=== PATIENT | male | born 1945 | race Caucasian/White ===

== ENCOUNTER 2025-01-02 09:09 | Day surgery (SDC) | payer OTHER ==
[2025-01-02] MEDS ORDERED: Midazolam 1 MG/ML 2 ML SDV IV ONE (09:10)
[2025-01-02] MEDS ORDERED: Dexamethasone 4 MG/ML SDV IV ONE (09:10)
[2025-01-02] MEDS ORDERED: Sodium Chloride 0.9% 10 ML Syringe IV ONE (09:10)
[2025-01-02] MEDS: Proparacaine 0.5% Ophth Soln 15 ML Bottle EYERT ONE ×2 (10:04→12:02)
[2025-01-02] MEDS: Povidone-Iodine 5% Sterile Ophth Soln 30 ML Bottle EYERT ONE ×2 (10:05→12:02)
[2025-01-02] MEDS: Moxifloxacin 0.5% Ophth Soln 3 ML Bottle EYERT ONE (10:05)
[2025-01-02] MEDS: Phenylephrine 10% Ophth Soln 5 ML Bot EYERT ONE (10:07)
[2025-01-02] MEDS: Tropicamide 1% Ophth Soln 15 ML Bottle EYERT ONE (10:08)
[2025-01-02] MEDS: Timolol Maleate 0.5% Ophth Soln 5 ML Bottle EYERT ONE (10:08)
[2025-01-02] MEDS: Cataract Ophth Solution EYERT ONE (10:09)
[2025-01-02] MEDS ORDERED: Sodium Chloride 0.9% 10 ML Syringe FLUSH PRN (12:00)
[2025-01-02] MEDS ORDERED: Acetaminophen/Codeine 300-30 MG Tab PO PRN (12:00)
[2025-01-02] MEDS ORDERED: Lidocaine 1% 30 ML SDV INJECT ONE (12:00)
[2025-01-02] MEDS ORDERED: VANCOmycin 500 MG SDV EYERT ONE (12:00)
[2025-01-02] MEDS ORDERED: Acetaminophen 325 MG Tab PO PRN (12:00)
[2025-01-02] MEDS ORDERED: Ondansetron 4 MG/2 ML SDV IVPUSH PRN (12:00)
[2025-01-02] MEDS: Apraclonidine 0.5% Ophth Soln 5 ML Bot EYERT ONE (12:03)
[2025-01-02] MEDS: Diclofenac Sodium 0.1% Ophth Soln 5 ML Bottle EYERT ONE (12:03)
[2025-01-02] MEDS: Lidocaine 1% 30 ML SDV INJECT ONE (12:04)
[2025-01-02] MEDS: Dexamethasone/Neomycin/Polymyxin B Ophth Oint 3.5 GM Tube EYERT ONE (12:04)
[2025-01-02] MEDS: VANCOmycin 500 MG SDV EYERT ONE (12:05)
== END 2025-01-02 12:58 | disposition home or self-care (01) ==
LOC: DL.SDS 09:09
PROVIDERS: ATTEND Ophthalmology
DX: E11.36 Type 2 diabetes mellitus with diabetic cataract (principal); H25.811 Combined forms of age-related cataract, right eye; K21.9 Gastro-esophageal reflux disease without esophagitis; I10 Essential (primary) hypertension; Z79.84 Long term (current) use of oral hypoglycemic drugs; Z79.899 Other long term (current) drug therapy
CPT/HCPCS: 66984; A9270; J2003; J3370; 00142; 99100; J1100; J2250; J3490

== ENCOUNTER 2025-01-16 07:44 | Day surgery (SDC) | payer OTHER ==
[2025-01-16] MEDS ORDERED: Sodium Chloride 0.9% 10 ML Syringe IV ONE (07:45)
[2025-01-16] MEDS ORDERED: Dexamethasone 4 MG/ML SDV IV ONE (07:45)
[2025-01-16] MEDS ORDERED: Midazolam 1 MG/ML 2 ML SDV IV ONE (07:45)
[2025-01-16] MEDS: Proparacaine 0.5% Ophth Soln 15 ML Bottle EYELF ONE ×2 (08:18→09:10)
[2025-01-16] MEDS: Moxifloxacin 0.5% Ophth Soln 3 ML Bottle EYELF ONE (08:18)
[2025-01-16] MEDS: Povidone-Iodine 5% Sterile Ophth Soln 30 ML Bottle EYELF ONE ×2 (08:19→09:10)
[2025-01-16] MEDS: Tropicamide 1% Ophth Soln 15 ML Bottle EYELF ONE (08:21)
[2025-01-16] MEDS: Timolol Maleate 0.5% Ophth Soln 5 ML Bottle EYELF ONE (08:21)
[2025-01-16] MEDS: Phenylephrine 10% Ophth Soln 5 ML Bot EYELF PRN (08:22)
[2025-01-16] MEDS: Cataract Ophth Solution EYELF ONE (08:23)
[2025-01-16] MEDS ORDERED: Lidocaine 1% 30 ML SDV INJECT ONE (09:15)
[2025-01-16] MEDS ORDERED: Acetaminophen/Codeine 300-30 MG Tab PO PRN (09:15)
[2025-01-16] MEDS ORDERED: VANCOmycin 500 MG SDV EYELF ONE (09:15)
[2025-01-16] MEDS ORDERED: Ondansetron 4 MG/2 ML SDV IVPUSH PRN (09:15)
[2025-01-16] MEDS: VANCOmycin 500 MG SDV EYELF ONE (09:15)
[2025-01-16] MEDS ORDERED: Acetaminophen 325 MG Tab PO PRN (09:15)
[2025-01-16] MEDS: Lidocaine 1% 30 ML SDV ONE (09:15)
[2025-01-16] MEDS: Diclofenac Sodium 0.1% Ophth Soln 5 ML Bottle EYELF ONE (09:26)
[2025-01-16] MEDS: Dexamethasone/Tobramycin 0.1-0.3% Ophth Oint 3.5 GM Tube EYELF ONE (09:26)
[2025-01-16] MEDS: Apraclonidine 0.5% Ophth Soln 5 ML Bot EYELF ONE (09:26)
== END 2025-01-16 10:10 | disposition home or self-care (01) ==
LOC: DL.SDS 07:44
PROVIDERS: ATTEND Ophthalmology
DX: H25.812 Combined forms of age-related cataract, left eye (principal)
CPT/HCPCS: 66984; A9270; J2003; J3370; J1100; J2250; J3490